=== PATIENT | female | born 1985 | race Caucasian/White ===

== ENCOUNTER 2022-06-25 11:14 | Outpatient (CLI) | payer BC, SELFPAY | END 2022-06-25 11:15 | disposition home or self-care (01) | PROVIDERS: PCP Obstetrics & Gynecology; Visit Provider Registered Nurse | DX: L03.90 Cellulitis, unspecified (principal); W57.XXXA Bitten or stung by nonvenomous insect and other nonvenomous arthropods, initial encounter | CPT/HCPCS: 87070 ==